=== PATIENT | female | born 1960 | race American Indian/Alaskan Native ===

== ENCOUNTER 2018-08-08 05:20 | Inpatient (IN) | payer BC, OTHER ==
[2018-08-08] MEDS ORDERED: Celecoxib 200 MG Cap PO ONE (06:22)
[2018-08-08] MEDS ORDERED: Gabapentin 300 MG Cap PO ONE (06:22)
[2018-08-08] MEDS ORDERED: Acetaminophen 500 MG Tab PO ONE (06:22)
[2018-08-08] MEDS ORDERED: Scopolamine 1.5 MG Transdermal Patch TOP ONE (06:22)
[2018-08-08] MEDS ORDERED: Dextrose 5%-Lactated Ringers 1,000 ML IV SCH (06:30)
[2018-08-08] MEDS ORDERED: Albuterol/Ipratropium 3.0-0.5 MG/3 ML Neb Soln NEB ONE (06:45)
[2018-08-08] MEDS ORDERED: cefOXitin 2 GM Vial ONE (06:50)
[2018-08-08] MEDS ORDERED: fentaNYL 250 MCG/5 ML SDV ONE ×2 (07:10→08:04)
[2018-08-08] MEDS ORDERED: Succinylcholine 200 MG/10 ML MDV ONE (07:10)
[2018-08-08] MEDS ORDERED: Rocuronium 50 MG/5 ML Vial ONE (07:10)
[2018-08-08] MEDS ORDERED: Dexamethasone 4 MG/ML SDV ONE (07:10)
[2018-08-08] MEDS ORDERED: Neostigmine Methylsulfate 1 MG/ML 5 ML Syringe ONE (07:10)
[2018-08-08] MEDS ORDERED: Ondansetron 4 MG/2 ML SDV ONE (07:10)
[2018-08-08] MEDS ORDERED: Propofol 200 MG/20 ML SDV ONE (07:10)
[2018-08-08] MEDS ORDERED: Glycopyrrolate 0.2 MG/ML 5 ML MDV ONE (07:10)
[2018-08-08] MEDS ORDERED: Lactated Ringers 1,000 ML ONE (07:17)
[2018-08-08] MEDS ORDERED: Lidocaine 2% 100 MG/5 ML Syringe IVPUSH ONE (07:30)
[2018-08-08] MEDS ORDERED: Lidocaine 0.4%/D5W 2 GM/500 ML BAG IV SCH (07:30)
[2018-08-08] MEDS ORDERED: Ropivacaine 57 ML, Dexamethasone 8 MG, EPINEPHrine 0.4 MG, Sodium Chloride 0.9% 20.6 ML NERVRT SCH ×4 (07:30)
[2018-08-08] MEDS ORDERED: cefOXitin 2 GM in Sodium Chloride 0.9% 50 ML IV ONE ×2 (07:30→07:45)
[2018-08-08] MEDS ORDERED: Ketamine 500 MG/5 ML MDV IV SCH (07:30)
[2018-08-08] MEDS ORDERED: Insulin Lispro 100 Unit/ML 3 ML KwikPen SUBCUT ONE (09:30)
[2018-08-08] MEDS ORDERED: diphenhydrAMINE 50 MG/ML SDV IVPUSH PRN (11:00)
[2018-08-08] MEDS ORDERED: Albuterol/Ipratropium 3.0-0.5 MG/3 ML Neb Soln INH PRN (11:00)
[2018-08-08] MEDS ORDERED: Metoclopramide 10 MG/2 ML SDV IVPUSH PRN (11:00)
[2018-08-08] MEDS ORDERED: Ondansetron 4 MG/2 ML SDV IVPUSH PRN (11:00)
[2018-08-08] MEDS ORDERED: Labetalol 20 MG/4 ML Syringe IVPUSH PRN (11:00)
[2018-08-08] MEDS: Albuterol/Ipratropium 3.0-0.5 MG/3 ML Neb Soln INH SCH ×3 (11:09→20:42)
[2018-08-08] MEDS: Lidocaine 0.4%/D5W 2 GM/500 ML BAG IV SCH (11:39)
[2018-08-08] MEDS: CHECK SCOPOLAMINE PATCH DAILY TOP SCH (11:40)
[2018-08-08] MEDS: Pantoprazole 40 MG Vial IVPUSH SCH (11:40)
[2018-08-08] MEDS: cefOXitin 2 GM in Sodium Chloride 0.9% 50 ML IV SCH ×2 (12:47→18:08)
[2018-08-08] MEDS: hydrOXYzine HCl 100 MG/2 ML SDV IM PRN ×2 (12:50→20:41)
[2018-08-08] MEDS ORDERED: Acetaminophen Soln 650 MG/20.3 ML UD Cup PO SCH (14:00)
[2018-08-08] MEDS: Gabapentin 250 MG/5 ML Solution ML 470 ML Bottle PO SCH (14:04)
[2018-08-08] MEDS: Dextrose 5%-Lactated Ringers 1,000 ML IV SCH (14:09)
[2018-08-08] MEDS ORDERED: MVI, Adult with Vitamin K 10 ML, Thiamine 200 MG, Chromium/Copper/Mang/Selen/Zn 1 ML in... IV SCH ×4 (16:00)
[2018-08-08] MEDS: Insulin Lispro 100 Unit/ML 3 ML KwikPen SUBCUT PRN ×2 (16:55→22:15)
[2018-08-08] MEDS: Heparin Sodium 5,000 Units/ML Vial SUBCUT SCH (16:57)
[2018-08-08] MEDS ORDERED: Coagulation Factor VIIa Recombinant (per MCG) 2 MG Vial IVPUSH ONE (17:35)
[2018-08-08] MEDS: Tranexamic Acid 1,000 MG in Sodium Chloride 0.9% 50 ML IV SCH ×2 (17:39→20:44)
[2018-08-08] MEDS ORDERED: Coagulation Factor VIIa Recombinant (per MCG) 2 MG Vial IVPUSH STA (19:56)
[2018-08-08] MEDS ORDERED: Tranexamic Acid 1,000 MG in Sodium Chloride 0.9% 50 ML IV ONE (20:30)
[2018-08-08] MEDS: Acetaminophen 1,000 MG in Premix Bag 1 BAG IV SCH ×2 (20:43→20:55)
[2018-08-09] MEDS: Dextrose 5%-Lactated Ringers 1,000 ML IV SCH ×2 (00:05→06:07)
[2018-08-09] MEDS: cefOXitin 2 GM in Sodium Chloride 0.9% 50 ML IV SCH ×2 (00:05→06:09)
[2018-08-09] MEDS: Acetaminophen 1,000 MG in Premix Bag 1 BAG IV SCH (02:56)
[2018-08-09] MEDS ORDERED: Ondansetron 4 MG Tab.DIS PO PRN (07:07)
[2018-08-09] MEDS: Albuterol/Ipratropium 3.0-0.5 MG/3 ML Neb Soln INH SCH (07:07)
[2018-08-09] MEDS ORDERED: Albuterol 8 GM Inhaler INH PRN (07:11)
[2018-08-09] MEDS ORDERED: Fluticasone Propionate Nasal Spray 16 GM Bottle NASBOTH PRN (07:14)
[2018-08-09] MEDS ORDERED: Dextrose 5%-Lactated Ringers 1,000 ML IV SCH (07:15)
[2018-08-09] MEDS ORDERED: Acetaminophen 160 MG Tab,Disintegrating PO SCH (08:00)
[2018-08-09] MEDS ORDERED: Celecoxib 200 MG Cap PO SCH (08:00)
[2018-08-09] MEDS ORDERED: Non-Formulary Medication 1 Each (Potassium Chloride [Klor-Con 10] 10 MEQ) PO SCH (09:00)
[2018-08-09] MEDS ORDERED: Non-Formulary Medication 1 Each (Duloxetine [Cymbalta] 60 MG) PO SCH (09:00)
[2018-08-09] MEDS: Furosemide 20 MG Tab PO SCH (09:12)
[2018-08-09] MEDS: Levothyroxine 88 MCG Tab PO SCH (09:13)
[2018-08-09] MEDS: Atenolol 50 MG Tab PO SCH ×2 (09:14→21:16)
[2018-08-09] MEDS: amLODIPine 10 MG Tab PO SCH (09:16)
[2018-08-09] MEDS: Potassium Chloride 10 MEQ Cap.ER PO SCH (09:18)
[2018-08-09] MEDS: DULoxetine 30 MG Cap PO SCH (09:19)
[2018-08-09] MEDS: Acetaminophen 325 MG Tab PO SCH ×3 (09:27→21:15)
[2018-08-09] MEDS: SCOPOLAMINE PATCH CHECK TOP SCH (09:28)
[2018-08-09] MEDS: CHECK SCOPOLAMINE PATCH DAILY TOP SCH (09:28)
--- NOTE | 2018-08-09 09:38 | PN ---
DATE OF SERVICE: 08/09/2018 SUBJECTIVE: The patient is postop day one. She had two bloody emesis late yesterday. She had 2 doses of tranexamic acid and 2 doses of fibrin VII. Hemoglobin this morning 9.5 on admission. It was 12.8. She states the pain is controlled. She is feeling good. BRYCE drain put out 170 mL of a light red drainage. Blood sugars over the past 24 hours 200. On admission, at 16:55, it was 312 and 22:00 is 264 and 04:00 is 163. She was undiagnosed diabetic with admission hemoglobin A1c of 6.7. REVIEW OF SYSTEMS: Remainder of review of systems negative for any pertinent positives and negatives. OBJECTIVE: GENERAL: The patient is a pleasant 57-year-old female. She is alert, oriented, quite talkative this morning. VITAL SIGNS: TPR is 98.8, 86, 16, and blood pressure 134/67. HEENT: Negative. NECK: Supple. HEART: Regular rate and rhythm. LUNGS: Clear. ABDOMEN: Dressings dry and intact. Abdominal binder has been on. BRYCE drain shows a light red drainage. Very small clots are noted in the tubing. EXTREMITIES: SCDs are on and there is no peripheral edema. ASSESSMENT: 1. Laparoscopic Kelvin-en-Y gastric bypass surgery, liver biopsy, repair of diaphragmatic hernia and excision of mediastinal lipoma for morbid obesity, hepatomegaly, diaphragmatic hernia, and mediastinal lipoma. Date of surgery 08/08/2018. Surgeon, Jackson Garza MD. 2. Bleeding from the staple line of the gastrojejunostomy on 08/08/2018 requiring two doses of tranexamic acid and fibrin VII. PLAN: 1. Gastric bypass diet. 2. Check CBC in a.m. 3. Tylenol 650 mg chewable scheduled q.6 hours. 4. Albuterol inhaler p.r.n. 5. Dilaudid 2 mg 1 to 2 every 4 hours p.r.n. pain. 6. Dressing off, march shower. HOME MEDICATIONS: 1. Started Norvasc 10 mg p.o. daily. 2. Atenolol 50 mg p.o. b.i.d. 3. Flexeril 10 mg p.o. at bedtime. 4. Cymbalta 60 mg p.o. daily. 5. Flonase 1 spray in each nostril p.r.n. allergies. 6. Lasix 20 mg p.o. daily. 7. Synthroid 88 mcg mg p.o. daily. 8. Potassium chloride 10 mEq p.o. daily. 9. Restoril 15 mg p.o. at bedtime. 10.Trazodone 50 mg p.o. at bedtime. 11.Good pulmonary toilet, encouraged ambulation. 12.Zofran ODT 4 mg q.4 hours p.r.n. nausea. We will evaluate p.r.n. or in a.. Francoise Chandler PA-C /[id number]
--- NOTE | 2018-08-09 11:18 | OR ---
DATE OF PROCEDURE: 08/08/2018 PREOPERATIVE DIAGNOSIS: Morbid obesity. POSTOPERATIVE DIAGNOSES: 1. Morbid obesity. 2. Marked hepatomegaly. 3. Paraesophageal diaphragmatic hernia. 4. Mediastinal lipoma. OPERATIVE PROCEDURES: 1. Laparoscopic Kelvin-en-Y gastric bypass along with long limb gastroenterostomy (77362). 2. Thony-Cut needle liver biopsy (03871). 3. Repair of paraesophageal diaphragmatic hernia (21120). 4. Excision of mediastinal lipoma (05934). ANESTHESIA: General. MANAGER DISCOVERY: Francoise Chandler PA-C. INDICATIONS FOR PROCEDURE: This is a 57-year-old female presenting with longstanding morbid obesity and increasingly significant comorbidities. After preoperative evaluation and discussion, she wished to proceed with a gastric bypass procedure. Potential risks of procedure including bleeding, infection, leaks from various GI tract closures, problems with bowel obstruction over time as well as possibility of cardiopulmonary, septic, or hemorrhagic complications leading to were discussed, and the patient wishes to proceed. DETAILS OF PROCEDURE: The patient was taken to the operating room after general endotracheal anesthesia was induced and placed in a lithotomy position. The abdomen was then prepped and draped and orogastric tube placed, 15 cm inferior and 5 cm left of xiphoid process. A transverse incision was made and the peritoneal cavity entered under direct vision with an Optiview trocar and inflated to 15 mmHg pressure of CO2. Laparoscope was reinserted. No underlying trocar insertion site injuries were seen. Following this, 5 additional trocars were placed across the upper mid abdomen. General exploration was undertaken. The patient was noted to have some adhesions between the omentum, small bowel, and right lateral abdominal wall, but not in a location that would be problematic. Bilateral subcostal transversus abdominis plane blocks were then placed with direct visualization of the needle in the correct plane. The liver was examined and found to be fatty infiltrated and somewhat enlarged. No evidence of cirrhosis was present. The Thony-Cut needle biopsy was obtained from the left lobe of the liver. Minimal bleeding from the biopsy sites was controlled with electrocautery. The omentum was then divided in the midline at the level of the transverse colon. This allowed identification of small bowel to the ligament of Treitz. Small bowel was then traced out 150 cm distal to that point, where it was divided transversely with a NEYMAR stapler. Small bowel was then traced out and additional 150 cm where the [id number] enteroenterostomy was accomplished with an internal firing of the Endo-NEYMAR 60 mm stapler. Common opening was closed transversely with the same stapler and the angles anastomosed and mesenteric defect approximated with some 0 Ethibond stitch along with fibrin sealant. The divided end of the Kelvin limb was then from the mesentery for a few centimeters, which allowed an antecolic position of the Kelvin limb up to the level of the gastroesophageal junction without tension. The liver was then retracted anteriorly. The patient was noted to have a moderate-sized paraesophageal diaphragmatic hernia with prolapse of a portion of the gastric fundus, perigastric fat, as well as a tongue of omentum into the area of herniation in a plane anterior to the course of the esophagus. The hernia was reduced and the peritoneum overlying was incised and reflected downward. During the course of this dissection, a mediastinal lipoma was encountered and this was excised and sent as a separate specimen. An anterior repair of the diaphragmatic hernia was then accomplished with 0 Ethibond sutures and reinforced with PTFE pledgets. The gastrointestinal catheter was then inflated to 15 mL and pulled up snugly against the EG junction. Gastric wall over the apex balloon was then marked with electrocautery and balloon catheter deflated and pulled up into the esophagus. The lesser omental tissue adjacent to the gastric cardia was then incised allowing dissection behind the stomach at that level. Pouch formation was initiated with a transverse firing of the NEYMAR stapler at the level of the cauterized gumaro in the gastric cardia. Pouch was then completed with one additional firing of the NEYMAR stapler up to and through the angle of His. Upon completion of the pouch, both staple lines were noted to be intact. The anvil of a 25 mm EEA stapler was then attached to [place] Sump Type Tube. The latter was brought down through the mouth and taken out through a small opening in the gastric pouch allowing the anvil likewise to be pulled down to within the gastric pouch. The divided end of the Kelvin limb was then opened and the main body of EEA stapler passed several centimeters in the lumen of the small bowel, brought up the anvil and united with it thus creating a gastrojejunostomy. Upon removal of the stapler, double donuts of mucosa were noted within it. The small bowel was closed off with a vascular stapler line. Gastrojejunostomy was reinforced with some 3-0 Vicryl seromuscular stitch along with fibrin sealant. Leak test was accomplished with injection of 120 mL of air in the gastric pouch while submerged with cefoxitin-containing saline solution. No leaks were identified. Two Roscoe-Rowe drains were then placed adjacent to the gastrojejunostomy and taken out of the subcostal trocar sites. No further problems noted. Trocars were removed and peritoneal cavity deflated. The incision was closed with 4-0 Vicryl skin stitch and drains affixed with 4-0 Vicryl stitch as well. Dressing was applied. The patient was taken to the recovery room in satisfactory condition. There were no evident complications. Physician recycling assistant, Francoise Chandler, played an essential role in assisting in this case, helping to position the patient, retract structures as needed, as well as suturing and cutting sutures as indicated. Her presence improved patient safety and decreased operative time. Jackson Garza MD /[id number]
[2018-08-09] MEDS: Lidocaine 0.4%/D5W 2 GM/500 ML BAG IV SCH (12:36)
[2018-08-09] MEDS: Pantoprazole 40 MG Vial IVPUSH SCH (13:46)
[2018-08-09] MEDS: Gabapentin 250 MG/5 ML Solution ML 470 ML Bottle PO SCH (13:47)
[2018-08-09] MEDS ORDERED: MVI, Adult with Vitamin K 10 ML, Thiamine 200 MG, Chromium/Copper/Mang/Selen/Zn 1 ML in... IV SCH ×4 (16:00)
[2018-08-09] MEDS: HYDROmorphone 2 MG Tab PO PRN (17:36)
[2018-08-09] MEDS: traZODone 50 MG Tab PO SCH (21:15)
[2018-08-09] MEDS: Temazepam 15 MG Cap PO SCH (21:19)
[2018-08-09] MEDS: Cyclobenzaprine 10 MG Tab PO SCH (21:19)
[2018-08-10] MEDS: HYDROmorphone 2 MG Tab PO PRN ×3 (02:45→12:55)
[2018-08-10] MEDS: Acetaminophen 325 MG Tab PO SCH ×4 (03:00→21:00)
[2018-08-10] MEDS ORDERED: Ondansetron 4 MG Tab.DIS PO PRN (06:36)
[2018-08-10] MEDS: Levothyroxine 88 MCG Tab PO SCH (07:29)
--- NOTE | 2018-08-10 07:52 | PN ---
DATE OF SERVICE: 08/10/2018 SUBJECTIVE: Kassandra had no further bloody emesis. Blood sugars have been in the 130s. Hemoglobin this morning was 9. Tolerating a Step-1 diet well. Oral intake was 1420 and output was 550. BRYCE drain put out 185 mL of a light pink serosanguineous drainage. REVIEW OF SYSTEMS: Remainder of review of systems negative for any pertinent positives and negatives. OBJECTIVE: GENERAL: Kassandra Mchugh is a 57-year-old female, alert, orientated. VITAL SIGNS: TPR 98.1, 70, 18. Blood pressure 116/67. HEENT: Negative. NECK: Supple. HEART: Regular rate and rhythm. LUNGS: Clear. ABDOMEN: Dressings dry and intact. BRYCE drain intact as above. EXTREMITIES: SCDs are on. ASSESSMENT: Laparoscopic Kelvin-en-Y gastric bypass surgery with long limb gastroenterostomy, Thony-Cut needle liver biopsy, repair of gastroesophageal diaphragmatic hernia, and excision of mediastinal lipoma, for morbid obesity, marked hepatomegaly, paraesophageal diaphragmatic hernia, and mediastinal lipoma. Surgeon, Jackson Garza M.D. Date of procedure, 08/08/2018. PLAN: 1. Step-2 gastric bypass diet, no cereal. 2. Check CBC now and in a.m. 3. Discontinue BRYCE drain. 4. Saline lock IV. 5. Good pulmonary toilet. 6. We will evaluate p.r.n. or in a.m. 7. Plan discharge in a.m. Francoise Chandler PA-C /[id number]
[2018-08-10] MEDS ORDERED: Cyanocobalamin (Vitamin B12) 1,000 MCG/ML SDV IM ONE (09:00)
[2018-08-10] MEDS: Furosemide 20 MG Tab PO SCH (09:16)
[2018-08-10] MEDS: DULoxetine 30 MG Cap PO SCH (09:17)
[2018-08-10] MEDS: amLODIPine 10 MG Tab PO SCH (09:18)
[2018-08-10] MEDS: Potassium Chloride 10 MEQ Cap.ER PO SCH (09:18)
[2018-08-10] MEDS: Atenolol 50 MG Tab PO SCH ×2 (09:18→20:55)
[2018-08-10] MEDS: SCOPOLAMINE PATCH CHECK TOP SCH (09:20)
[2018-08-10] MEDS: CHECK SCOPOLAMINE PATCH DAILY TOP SCH (09:20)
[2018-08-10] MEDS: Pantoprazole 40 MG Tab.CR PO SCH (10:25)
[2018-08-10] MEDS: traZODone 50 MG Tab PO SCH (20:52)
[2018-08-10] MEDS: Cyclobenzaprine 10 MG Tab PO SCH (20:53)
[2018-08-10] MEDS: Temazepam 15 MG Cap PO SCH (20:53)
[2018-08-11] MEDS: Acetaminophen 325 MG Tab PO SCH ×2 (04:13→12:04)
[2018-08-11] MEDS: Heparin Sodium 5,000 Units/ML Vial SUBCUT SCH (04:14)
[2018-08-11] MEDS: Levothyroxine 88 MCG Tab PO SCH (08:33)
[2018-08-11] MEDS: Potassium Chloride 10 MEQ Cap.ER PO SCH (08:33)
[2018-08-11] MEDS: Furosemide 20 MG Tab PO SCH (08:33)
[2018-08-11] MEDS: Pantoprazole 40 MG Tab.CR PO SCH (08:33)
[2018-08-11] MEDS: DULoxetine 30 MG Cap PO SCH (08:33)
[2018-08-11] MEDS: Atenolol 50 MG Tab PO SCH (08:40)
[2018-08-11] MEDS: amLODIPine 10 MG Tab PO SCH (08:40)
[2018-08-11 08:42] VITALS: BP 122/65
--- NOTE | 2018-08-11 09:23 | DISCH ---
ADMISSION DIAGNOSES: Morbid obesity, obstructive sleep apnea, BMI 44.4, insomnia, hypertension, hyperlipidemia, degenerative joint disease, asthma, insomnia. DISCHARGE DIAGNOSES: 1. Laparoscopic Kelvin-en-Y gastric bypass surgery with long limb gastroenterostomy, Thony-Cut needle liver biopsy, repair of gastroesophageal diaphragmatic hernia, and excision of mediastinal lipoma for morbid obesity, marked hepatomegaly, paraesophageal diaphragmatic hernia, and mediastinal lipoma. Surgeon: Jackson Garza MD. Date of procedure: 08/08/2018. 2. Bleeding from the staple line of the gastrojejunostomy on 08/08/2018, requiring two doses of tranexamic acid and Fibrin 7. HISTORY: Kassandra Mchugh is a 57-year-old female, presenting with longstanding history of morbid obesity and increasingly significant comorbidities. After preoperative evaluation, discussion of possible risks and possible complications, she wished to proceed with surgical procedure. HOSPITAL COURSE: Kassandra had her surgery on 08/08/2018. On postoperative day #1, she had emesis of blood and she was given 2 doses of tranexamic acid and Fibrin Factor VII. Her bleeding did stop. Hemoglobin on 08/08 at 04:00 was 12.8; on 08/09, it was 9.5; on 08/10, 9; and day of discharge, 9.3. On postoperative day #1, she was started on a step 1 gastric bypass diet, tolerated it well. On postoperative day #2, she was started on step 2 gastric bypass diet with no cereal. She received dietary instructions. Her oral intake was adequate. Blood sugars ranged 115 to 121. Oral intake was 1380. Urine output 3400. She did receive a B12 1000 mcg IM injection and dietary instruction. On 08/11/2018, she was able to be discharged to home without any complications. PHYSICAL EXAMINATION: GENERAL: Kassandra Mchugh is a 57-year-old female. VITAL SIGNS: Height is 5 feet 3 inches, weight is 250 pounds, BMI is 44.4, TPR is 99.3, 77, 16, blood pressure 103/48. HEENT: Negative. NECK: Supple. HEART: Regular rate and rhythm. LUNGS: Clear. ABDOMEN: Sutures intact 4 x 4 over BRYCE drain sites and abdominal binder has been on. EXTREMITIES: Without peripheral edema. DISPOSITION: Discharged to home. CONDITION: Stable and improving. FOLLOWUP: Followup appointment With Francoise Chandler PA-C on 08/16/2018 at 10:00 a.m. at [facility]. HOME MEDICATIONS: 1. Tylenol 650 mg oral q.6 h. x2 weeks p.r.n. and continue p.r.n. for pain. 2. Dilaudid 2 mg 1 to 2 every 4 hours p.r.n. pain #30. 3. Vistaril/hydroxyzine 25 mg q.6 h. p.r.n. pain #30. 4. Milk of magnesia 30 mL, two were sent home with the patient to take one daily until BM. 5. Zofran ODT 4 mg q.4 h. p.r.n. nausea #30. 6. She is to resume her home medication of albuterol, Proventil inhaler 2 puffs every 4 hours p.r.n. shortness of breath. 7. Atenolol 50 mg oral twice daily. 8. Flexeril 10 mg oral at bedtime. 9. Cymbalta 60 mg oral daily. 10.Flonase 1 spray in each nostril once daily. 11.Lasix 20 mg oral daily. 12.Synthroid 88 mcg oral daily. 13.Potassium chloride 10 mEq oral daily. 14.MiraLax 17 g oral daily p.r.n. constipation. 15.Senna S one tablet twice daily. 16.Restoril 15 mg oral at bedtime. 17.Norvasc 10 mg oral daily. 18.Trazodone 50 mg oral at bedtime. Stop taking calcium supplement, Celebrex, vitamin D3, vitamin B12, Voltaren, ibuprofen, multivitamin, B complex, and Zocor until first postop appointment, and then these medications will be reviewed and discussed. DISCHARGE DIET: Diet after discharge is step 2 gastric bypass diet with no cereal for 2 weeks on 08/23/2018. ACTIVITY: After discharge, no lifting over 10 pounds for 2 weeks. Other activity, walk at least 6 times daily, distance and time as tolerated. Driving after discharge, do not drive for 1 week or if taking narcotic pain medication. Shower/bathing, may shower. DISCHARGE INSTRUCTIONS: Notify provider if any fever, increased pain, nausea, or vomiting. Wound incision care, keep site clean and dry. Wear abdominal binder for 2 weeks and then as tolerated. SPECIAL INSTRUCTIONS: Use incentive spirometer 10 times every hour while awake. Keep a record of food and liquid intake and bring to clinic appointment.
[2018-08-11] MEDS: HYDROmorphone 2 MG Tab PO PRN (12:06)
[2018-08-11] MEDS ORDERED: Magnesium Hydroxide 400 MG/5 ML Susp 30 ML Cup PO ONE (12:15)
== END 2018-08-11 12:15 | disposition home or self-care (01) | DRG 403 ==
LOC: JP.SDSSCHI 05:20 → JP.SDS 05:20 → EDSTATUS 08:40 → JP.2SS 09:10
PROVIDERS: ADMIT Surgery; ATTEND Surgery
PROC: 0D164ZA Bypass Stomach to Jejunum, Percutaneous Endoscopic Approach (ICD-10-PCS; principal; 2018-08-08)
PROC: 0BQT4ZZ Repair Diaphragm, Percutaneous Endoscopic Approach (ICD-10-PCS; principal; 2018-08-08)
PROC: 0JB63ZZ Excision of Chest Subcutaneous Tissue and Fascia, Percutaneous Approach (ICD-10-PCS; principal; 2018-08-08)
PROC: 0FB24ZX Excision of Left Lobe Liver, Percutaneous Endoscopic Approach, Diagnostic (ICD-10-PCS; principal; 2018-08-08)
DX: E66.01 Morbid (severe) obesity due to excess calories (principal); K92.0 Hematemesis; R16.0 Hepatomegaly, not elsewhere classified; Z68.41 Body mass index [BMI] 40.0-44.9, adult; G47.33 Obstructive sleep apnea (adult) (pediatric); G47.00 Insomnia, unspecified; I10 Essential (primary) hypertension; D17.1 Benign lipomatous neoplasm of skin and subcutaneous tissue of trunk; E78.5 Hyperlipidemia, unspecified; J45.909 Unspecified asthma, uncomplicated; K44.9 Diaphragmatic hernia without obstruction or gangrene; G89.29 Other chronic pain; M25.519 Pain in unspecified shoulder; M25.562 Pain in left knee; M25.561 Pain in right knee; M19.90 Unspecified osteoarthritis, unspecified site; E03.9 Hypothyroidism, unspecified; Z91.018 Allergy to other foods; Z91.048 Other nonmedicinal substance allergy status; Z88.8 Allergy status to other drugs, medicaments and biological substances; Z96.653 Presence of artificial knee joint, bilateral; Z79.899 Other long term (current) drug therapy
CPT/HCPCS: 36415; 51702; 82962; 83036; 85027; 86850; 86900; 86901; 88304; 88307; 88313; 94640; A9270-GY; C9113; J0131; J0171; J0330; J0694; J1100; J1644; J1815; J2001; J2405; J2704; J2710; J2795; J3010; J3410; J3411; J3420; J3490; J7030; J7042; J7050; J7120; J7189; J7620-GY